=== PATIENT | female | born 1950 | race African-American/Black ===

== ENCOUNTER → 2017-03-07 | Outpatient (CLI) | payer BC ==
--- NOTE | 2017-03-07 15:50 | RAD ---
Indication pain associated with a fall. Axial images through the left knee were obtained. Images were reformatted in the coronal and sagittal planes. No plain film imaging is available. There is mild soft tissue swelling. Review of axial images shows no acute finding. The reformatted images in the coronal and sagittal planes also fail to demonstrate any acute finding. There are degenerative changes. This is manifested primarily as medial joint space compartment narrowing. Some cystic degeneration associated with the lateral tibial plateau is noted. Osteophytes are seen medially off both the femur and proximal tibia. Smaller osteophytes are seen laterally. There is patellofemoral narrowing. There is probable chondrocalcinosis. IMPRESSION: Advanced degenerative changes involving the knee. No acute finding seen PQRS Compliance Statement: One or more of the following individualized dose reduction techniques were utilized for this examination: 1. Automated exposure control 2. Adjustment of the mA and/or kV according to patient size 3. Use of iterative reconstruction technique
--- NOTE | 2017-03-07 16:11 | RAD ---
Indication left leg pain. Grayscale color Doppler and spectral imaging was performed. Examination was targeted to the veins of the left lower extremity. The study is somewhat limited secondary to patient body habitus. The common femoral vein appeared normal. That portion of the femoral vein which was seen appeared unremarkable. The distal portion was not, however, well demonstrated. No thrombus was seen in the popliteal vein. The calf veins were not well visualized but no definite calf DVT was seen. IMPRESSION: Limited study. No definite DVT seen.
== END | disposition home or self-care (01) ==
LOC: US 15:21
PROVIDERS: ATTEND Orthopaedic Surgery Sports Medicine
DX: M17.12 Unilateral primary osteoarthritis, left knee (principal); M79.605 Pain in left leg; M79.89 Other specified soft tissue disorders; Z91.81 History of falling
CPT/HCPCS: 73700; 76376; 93971

== ENCOUNTER 2018-05-26 20:25 | Emergency (ER) | payer BC ==
[~2018-05-26] VITALS: Ht 160 cm; Wt 145.1 kg
[2018-05-26] MEDS ORDERED: SERT100T PO (21:00)
[2018-05-26] MEDS ORDERED: METF10007 PO (21:00)
[2018-05-26] MEDS ORDERED: VALS320T2 PO (21:02)
[2018-05-26] MEDS ORDERED: FURO40TA4 PO (21:02)
[2018-05-26] MEDS ORDERED: ATOR10TA60 PO (21:02)
[2018-05-26] MEDS ORDERED: BUTORPHANOL 2 MG/ML VIAL. IV ONE (21:30)
[2018-05-26] MEDS ORDERED: PROCHLORPERAZINE 10 MG/2 ML VIAL. IV ONE (21:30)
--- NOTE | 2018-05-26 21:36 | PHYS DOC ---
Past Medical History Past Medical History: Diabetes-Type I, High Cholesterol Past Surgical History: Hysterectomy, Lumbar Laminectomy Alcohol Use: Rarely Drug Use: None Adult General Chief Complaint Chief Complaint: HEADACHE HPI HPI Patient is a 68-year-old female who presents with complaint of left-sided frontal headache that started yesterday. Patient indicates the pain is been progressively worsening. She states that she was not able to really sleep last night because of the pain. She states that she finally fell asleep at about 6: 00 this morning. She currently rates her pain to be a 10 out of 10. She does indicate that she has had some nausea as well as vomiting since headache onset. She describes the pain as being like a sharp stabbing and is throbbing in nature. She does have a history of headaches in the past but states that this is different. He denies any chest pain, shortness of breath or abdominal pain. She also denies photophobia or phonophobia. She states that nothing really worsens or improves the headache. Review of Systems Review of Systems Constitutional: Denies fever or chills [] Eyes: Denies change in visual acuity, redness, or eye pain [] HENT: Denies nasal congestion or sore throat [] Respiratory: Denies cough or shortness of breath [] Cardiovascular: Denies chest pain[] GI: Denies abdominal pain. Complains of nausea and vomiting [] Musculoskeletal: Denies back pain or joint pain [] Integument: Denies rash or skin lesions [] Neurologic: Complains of headache[] All other systems were reviewed and found to be within normal limits, except as documented in this note. Current Medications Current Medications Current Medications Medications (Trade) Dose Ordered Sig/Domingo Start Time Stop Time Status Last Admin Dose Admin Acetaminophen (Tylenol) 1,000 mg 1X ONCE 05/26/18 21:45 05/26/18 21:46 DC 05/26/18 22:36 1,000 MG Butorphanol Tartrate (Stadol) 1 mg 1X ONCE 05/26/18 21:30 05/26/18 21:31 DC 05/26/18 22:25 1 MG Ceftriaxone Sodium 50 ml @ 100 mls/hr 1X ONCE 05/27/18 01:00 05/27/18 01:29 05/27/18 01:03 100 MLS/HR Ketorolac Tromethamine (Toradol 15mg Vial) 15 mg 1X ONCE 05/26/18 23:15 05/26/18 23:16 DC 05/26/18 23:41 15 MG Prochlorperazine Edisylate (Compazine) 10 mg 1X ONCE 05/26/18 21:30 05/26/18 21:31 DC 05/26/18 22:24 10 MG Sumatriptan Succinate (Imitrex) 6 mg 1X ONCE 05/26/18 23:15 05/26/18 23:16 DC 05/26/18 23:41 6 MG Allergies Allergies Allergies Coded Allergies Type Severity Reaction Last Updated Verified Sulfa (Sulfonamide Antibiotics) Allergy Intermediate Hives 05/26/18 No Physical Exam Physical Exam Constitutional: Well developed, well nourished, no acute distress, non-toxic appearance. [] HENT: Normocephalic, atraumatic, bilateral external ears normal, oropharynx moist, no oral exudates, nose normal. [] Eyes: PERRLA, EOMI, conjunctiva normal, no discharge. [] Neck: Normal range of motion, no tenderness, supple, no stridor. [] Cardiovascular:Heart rate regular rhythm [] Lungs & Thorax: Bilateral breath sounds clear to auscultation [] Abdomen: Bowel sounds normal, soft, no tenderness. [] Skin: Warm, dry, no erythema, no rash. [] Extremities: No tenderness, no cyanosis, no clubbing, ROM intact, no edema. [] Neurologic: Alert and oriented X 3, normal motor function, normal sensory function, no focal deficits noted. [] Current Patient Data Vital Signs Vital Signs Date Time Temp Pulse Resp B/P (MAP) Pulse Ox O2 Delivery O2 Flow Rate FiO2 05/26/18 23:50 90 16 94 05/26/18 22:25 Room Air 05/26/18 20:34 100.3 144/94 (111) 100.3 Lab Values Laboratory Tests Test 05/26/18 21:30 05/27/18 00:15 White Blood Count 10.0 x10^3/uL (4.0-11.0) Red Blood Count 3.52 x10^6/uL (3.50-5.40) Hemoglobin 10.4 g/dL (12.0-15.5) L Hematocrit 30.6 % (36.0-47.0) L Mean Corpuscular Volume 87 fL (79-100) Mean Corpuscular Hemoglobin 30 pg (25-35) Mean Corpuscular Hemoglobin Concent 34 g/dL (31-37) Red Cell Distribution Width 15.4 % (11.5-14.5) H Platelet Count 155 x10^3/uL (140-400) Neutrophils (%) (Auto) 90 % (31-73) H Lymphocytes (%) (Auto) 4 % (24-48) L Monocytes (%) (Auto) 6 % (0-9) Eosinophils (%) (Auto) 0 % (0-3) Basophils (%) (Auto) 0 % (0-3) Neutrophils # (Auto) 9.0 x10^3uL (1.8-7.7) H Lymphocytes # (Auto) 0.4 x10^3/uL (1.0-4.8) L Monocytes # (Auto) 0.6 x10^3/uL (0.0-1.1) Eosinophils # (Auto) 0.0 x10^3/uL (0.0-0.7) Basophils # (Auto) 0.0 x10^3/uL (0.0-0.2) Segmented Neutrophils % 75 % (35-66) H Band Neutrophils % 14 % (0-9) H Lymphocytes % 4 % (24-48) L Monocytes % 5 % (0-10) Eosinophils % 2 % (0-5) Nucleated Red Blood Cells 1 Platelet Estimate Adequate (ADEQUATE) Sodium Level 137 mmol/L (136-145) Potassium Level 3.8 mmol/L (3.5-5.1) Chloride Level 99 mmol/L (98-107) Carbon Dioxide Level 29 mmol/L (21-32) Anion Gap 9 (6-14) Blood Urea Nitrogen 22 mg/dL (7-20) H Creatinine 1.3 mg/dL (0.6-1.0) H Estimated GFR (Cockcroft-Gault) 49.1 BUN/Creatinine Ratio 17 (6-20) Glucose Level 197 mg/dL (70-99) H Calcium Level 9.3 mg/dL (8.5-10.1) Total Bilirubin 0.7 mg/dL (0.2-1.0) Aspartate Amino Transferase (AST) 18 U/L (15-37) Alanine Aminotransferase (ALT) 16 U/L (14-59) Alkaline Phosphatase 72 U/L (46-116) Total Protein 7.6 g/dL (6.4-8.2) Albumin 3.3 g/dL (3.4-5.0) L Albumin/Globulin Ratio 0.8 (1.0-1.7) L Thyroid Stimulating Hormone (TSH) 0.635 uIU/mL (0.358-3.74) Urine Collection Type Unknown Urine Color Yellow Urine Clarity Cloudy Urine pH 6.0 Urine Specific [place] 1.020 Urine Protein 30 mg/dL (NEG-TRACE) Urine Glucose (UA) Negative mg/dL (NEG) Urine Ketones (Stick) Negative mg/dL (NEG) Urine Blood Large (NEG) Urine Nitrite Positive (NEG) Urine Bilirubin Negative (NEG) Urine Urobilinogen Dipstick 0.2 mg/dL (0.2 mg/dL) Urine Leukocyte Esterase Moderate (NEG) Urine RBC 20-40 /HPF (0-2) Urine WBC 11-20 /HPF (0-4) Urine Squamous Epithelial Cells Mod /LPF Urine Bacteria Many /HPF (0-FEW) Urine Mucus Slight /LPF Laboratory Tests 05/26/18 21:30 Laboratory Tests 05/26/18 21:30 EKG EKG [] Radiology/Procedures Radiology/Procedures [] Impressions: CT of head is negative. Chest x-ray is negative. Course & Med Decision Making Course & Med Decision Making Pertinent Labs and Imaging studies reviewed. (See chart for details) [] Dragon Disclaimer Dragon Disclaimer This electronic medical record was generated, in whole or in part, using a voice recognition dictation system. Departure Departure Impression: Primary Impression: Acute headache Additional Impression: Urinary tract infection Disposition: HOME, SELF-CARE Condition: STABLE Referrals: BANDAR HERZOG MD (PCP) Patient Instructions: Migraine Headache, Urinary Tract Infection Additional Instructions: Take prescribed medication as directed and follow-up with your primary care provider in the next few days. Scripts Nitrofurantoin Monohyd/M-Cryst (MACROBID 100 MG CAPSULE) 100 Mg Capsule 1 CAP PO BID, #14 CAP Prov: FRANK RODRIGUEZ Jr. DO 05/27/18 Problem Qualifiers Primary Impression: Acute headache Headache type: unspecified Intractability: not intractable Qualified Codes : R51 - Headache Additional Impression: Urinary tract infection Urinary tract infection type: site unspecified Hematuria presence: without hematuria Qualified Codes: N39.0 - Urinary tract infection, site not specified FRANK RODRIGUEZ Jr. DO May 26, 2018 21:36
[2018-05-26 21:45] LABS: BASO % 0 % (0-3); EOS % 0 % (0-3); HEMATOCRIT 30.6 % (36.0-47.0); HEMOGLOBIN 10.4 g/dL (12.0-15.5); LYMPH # 0.4 x10^3/uL (1.0-4.8); LYMPH % 4 % (24-48); MEAN CORPUSCULAR HEMOGLOBIN 30 pg (25-35); MEAN CORPUSCULAR HGB CONC 34 g/dL (31-37); MEAN CORPUSCULAR VOLUME 87 fL (79-100); MONO # 0.6 x10^3/uL (0.0-1.1); MONO % 6 % (0-9); NEUT % 90 % (31-73); PLATELET COUNT 155 x10^3/uL (140-400); RED BLOOD COUNT 3.52 x10^6/uL (3.50-5.40); RED CELL DISTRIBUTION WIDTH 15.4 % (11.5-14.5)
[2018-05-26] MEDS ORDERED: ACETAMINOPHEN 500 MG TABLET PO ONE (21:45)
[2018-05-26 21:54] LABS: CALCIUM 9.3 mg/dL (8.5-10.1); CREATININE 1.3 mg/dL (0.6-1.0); GFR 49.1; POTASSIUM 3.8 mmol/L (3.5-5.1)
[2018-05-26 22:00] LABS: ALBUMIN 3.3 g/dL (3.4-5.0); ALBUMIN/GLOBULIN RATIO 0.8 (1.0-1.7); TOTAL BILIRUBIN 0.7 mg/dL (0.2-1.0); TOTAL PROTEIN 7.6 g/dL (6.4-8.2)
[2018-05-26 22:09] LABS: % BANDS 14 % (0-9); % EOS 2 % (0-5); % LYMPHS 4 % (24-48); % MONOS 5 % (0-10); % SEGS 75 % (35-66); NUCLEATED RBC 1; PLT ESTIMATE ADEQUATE (ADEQUATE)
--- NOTE | 2018-05-26 22:32 | RAD ---
EXAM: CT HEAD WITHOUT CONTRAST. HISTORY: Severe headache. TECHNIQUE: Computed tomography of the head was performed without intravenous contrast. COMPARISON: 11/21/2004. FINDINGS: There is no intracranial hemorrhage. Hypoattenuation within the white matter indicates moderate to severe chronic microangiopathic change. Prominence of the lateral ventricles and hemispheric sulci indicates mild atrophy. The visualized paranasal sinuses appear clear. There are changes of bilateral cataract surgery. The temporal bones are unremarkable. The calvarium reveals no suspicious lesions. IMPRESSION: 1. No acute intracranial findings. 2. Mild atrophy and moderate to severe chronic microangiopathic white matter change. *One or more of the following individualized dose reduction techniques were utilized for this examination: 1. Automated exposure control. 2. Adjustment of the mA and/or kV according to patient size. 3. Use of iterative reconstruction technique. Electronically signed by: Burke Huber MD (05/26/2018 10:30 PM) [facility]
[2018-05-26] MEDS ORDERED: SUMAtriptan SUCC 6 MG/0.5 ML VIAL. SQ ONE (23:15)
[2018-05-26] MEDS ORDERED: KETOROLAC 15 MG/ML VIAL. IV ONE (23:15)
--- NOTE | 2018-05-27 00:02 | RAD ---
EXAM: CHEST 2 VIEWS. HISTORY: Nausea, cough, shortness of breath, hypertension. COMPARISON: 01/18/2005. FINDINGS: Frontal and lateral views of the chest are obtained. There are no confluent infiltrates. There is no pneumothorax or pleural effusion. The heart is not enlarged. Calcified mediastinal lymph nodes are likely secondary to old granulomatous disease. There is bulky calcification along a chronic healed fracture of the right proximal clavicle. IMPRESSION: 1. No confluent infiltrates. Electronically signed by: Burke Huber MD (05/26/2018 11:59 PM) [facility]
[2018-05-27 00:24] LABS: BILIRUBIN,URINE NEGATIVE (NEG); CLARITY,URINE CLOUDY; COLOR,URINE YELLOW; NITRITE,URINE POSITIVE (NEG); PROTEIN,URINE 30 mg/dL (NEG-TRACE); UROBILINOGEN,URINE 0.2 mg/dL (0.2 mg/dL)
[2018-05-27 00:35] LABS: BACTERIA,URINE MANY /HPF (0-FEW); RBC,URINE 20-40 /HPF (0-2)
[2018-05-27 00:36] LABS: SQUAMOUS EPITHELIAL CELL,UR MOD /LPF
[2018-05-27] MEDS ORDERED: NITR100C62 PO (01:07)
[2018-05-27 01:36] VITALS: BP 130/74
== END 2018-05-27 01:37 | disposition home or self-care (01) ==
LOC: ER 20:25
DX: R51 Headache (principal); N39.0 Urinary tract infection, site not specified; E10.9 Type 1 diabetes mellitus without complications; E78.00 Pure hypercholesterolemia, unspecified; Z90.710 Acquired absence of both cervix and uterus; Z98.890 Other specified postprocedural states; Z88.2 Allergy status to sulfonamides
CPT/HCPCS: 36415; 70450; 71046; 80053; 81001; 84443; 85007; 85025; 87086; 96365; 96372; 96375; 99285; J0690; J0780; J1885; J3030

== ENCOUNTER 2018-05-27 16:32 | Emergency (ER) | payer BC ==
[~2018-05-27] VITALS: Ht 165.1 cm; Wt 145.1 kg
[~2018-05-27 16:32] MED LIST: ATOR10TA60 PO; FURO40TA4 PO; METF10007 PO; NITR100C62 PO; SERT100T PO; VALS320T2 PO
[2018-05-27] MEDS ORDERED: HYDROcodone/APAP 5/325MG 1 TAB TABLET PO ONE (17:30)
--- NOTE | 2018-05-27 17:32 | PHYS DOC ---
Past Medical History Past Medical History: Diabetes-Type I, High Cholesterol, UTI Past Surgical History: Hysterectomy, Lumbar Laminectomy Alcohol Use: Rarely Drug Use: None Adult General Chief Complaint Chief Complaint: MECHANICAL FALL HPI HPI Patient is a 68 year old female who presents to the emergency department with complaints of left hand and wrist pain after falling today using her walker. Patient states he became very dizzy and lightheaded when she fell pinning herself under her walker. Pt states she laid on the floor from approximately 7: 00 this morning until patient was brought to the emergency room. She reports an unknown duration of LOC. She reports that she was seen here in the ER yesterday for a headache with nausea and vomiting, and was diagnosed with a urinary tract infection. She did not take any of her medications today. Pt denies any chest pain, shortness of breath, abdominal pain, or fever. Review of Systems Review of Systems Constitutional: Denies fever or chills [] Eyes: Denies change in visual acuity, redness, or eye pain [] HENT: Denies nasal congestion or sore throat [] Respiratory: Denies cough or shortness of breath [] Cardiovascular: denies chest pain GI: Denies abdominal pain, nausea, vomiting, bloody stools or diarrhea [] : Denies dysuria or hematuria; reports being diagnosed with a UTI last night[] Musculoskeletal: Denies back pain ; reports left wrist and left hand pain with swelling Integument: Denies rash or skin lesions [] Neurologic: Denies headache, focal weakness or sensory changes, reports dizziness like the room was spinning prior to fall [] All other systems were reviewed and found to be within normal limits, except as documented in this note. Current Medications Current Medications Current Medications Medications (Trade) Dose Ordered Sig/Domingo Start Time Stop Time Status Last Admin Dose Admin Acetaminophen/ Hydrocodone Bitart (Lortab 5/325) 1 tab 1X ONCE 05/27/18 17:30 05/27/18 17:31 DC 05/27/18 17:22 1 TAB Ceftriaxone Sodium 50 ml @ 100 mls/hr 1X ONCE 05/27/18 20:15 05/27/18 20:44 DC 05/27/18 20:30 100 MLS/HR Sodium Chloride 1,000 ml @ 1,000 mls/hr 1X ONCE 05/27/18 20:15 05/27/18 21:14 DC 05/27/18 20:30 1,000 MLS/HR Allergies Allergies Allergies Coded Allergies Type Severity Reaction Last Updated Verified Sulfa (Sulfonamide Antibiotics) Allergy Intermediate Hives 05/26/18 No Physical Exam Physical Exam Constitutional: Well developed, well nourished, no acute distress, non-toxic appearance, obese [] HENT: Normocephalic, atraumatic, bilateral external ears normal, nose normal. [] Eyes: PERRLA, conjunctiva normal, no discharge. [] Neck: Normal range of motion, no tenderness, supple, no stridor. [] Cardiovascular:Heart rate regular rhythm, no murmur [] Lungs & Thorax: Bilateral breath sounds clear to auscultation [] Abdomen: Bowel sounds normal, soft, no tenderness, no masses, no pulsatile masses, bruising noted over RUQ [] Skin: Warm, dry, no erythema, no rash, bruising noted to R clavicle [] Extremities: No cyanosis, no clubbing, limited ROM of Left wrist, 2+ edema to left hand and left wrist with blistering noted to volar aspect of left thumb, pt reports diffuse tenderness with palpation of left hand and wrist, able to wiggle fingers. Neurologic: Alert and oriented X 3, normal motor function, normal sensory function, no focal deficits noted. [] Psychologic: Affect normal, judgement normal, mood normal. [] Current Patient Data Vital Signs Vital Signs Date Time Temp Pulse Resp B/P (MAP) Pulse Ox O2 Delivery O2 Flow Rate FiO2 05/27/18 22:10 98.2 72 20 98 98.2 05/27/18 16:35 185/77 (113) Room Air Lab Values Laboratory Tests Test 05/27/18 17:30 White Blood Count 9.0 x10^3/uL (4.0-11.0) Red Blood Count 3.79 x10^6/uL (3.50-5.40) Hemoglobin 11.2 g/dL (12.0-15.5) L Hematocrit 32.6 % (36.0-47.0) L Mean Corpuscular Volume 86 fL (79-100) Mean Corpuscular Hemoglobin 29 pg (25-35) Mean Corpuscular Hemoglobin Concent 34 g/dL (31-37) Red Cell Distribution Width 15.1 % (11.5-14.5) H Platelet Count 172 x10^3/uL (140-400) Neutrophils (%) (Auto) 85 % (31-73) H Lymphocytes (%) (Auto) 5 % (24-48) L Monocytes (%) (Auto) 9 % (0-9) Eosinophils (%) (Auto) 0 % (0-3) Basophils (%) (Auto) 0 % (0-3) Neutrophils # (Auto) 7.6 x10^3uL (1.8-7.7) Lymphocytes # (Auto) 0.5 x10^3/uL (1.0-4.8) L Monocytes # (Auto) 0.8 x10^3/uL (0.0-1.1) Eosinophils # (Auto) 0.0 x10^3/uL (0.0-0.7) Basophils # (Auto) 0.0 x10^3/uL (0.0-0.2) Segmented Neutrophils % 72 % (35-66) H Band Neutrophils % 10 % (0-9) H Lymphocytes % 5 % (24-48) L Monocytes % 12 % (0-10) H Basophils % 1 % (0-3) Platelet Estimate Adequate (ADEQUATE) Giant Platelets Few Prothrombin Time 13.9 SEC (11.7-14.0) Prothrombin Time INR 1.1 (0.8-1.1) Sodium Level 140 mmol/L (136-145) Potassium Level 3.6 mmol/L (3.5-5.1) Chloride Level 100 mmol/L (98-107) Carbon Dioxide Level 30 mmol/L (21-32) Anion Gap 10 (6-14) Blood Urea Nitrogen 20 mg/dL (7-20) Creatinine 1.2 mg/dL (0.6-1.0) H Estimated GFR (Cockcroft-Gault) 53.9 BUN/Creatinine Ratio 17 (6-20) Glucose Level 170 mg/dL (70-99) H Lactic Acid Level 1.5 mmol/L (0.4-2.0) Calcium Level 9.2 mg/dL (8.5-10.1) Total Bilirubin 0.6 mg/dL (0.2-1.0) Aspartate Amino Transferase (AST) 121 U/L (15-37) H Alanine Aminotransferase (ALT) 36 U/L (14-59) Alkaline Phosphatase 79 U/L (46-116) Creatine Kinase 6105 U/L (26-192) H Creatine Kinase MB (Mass) 81.1 ng/mL (0.0-3.6) H Creatine Kinase MB Relative Index 1.3 % (0-4) Troponin I Quantitative < 0.017 ng/mL (0.000-0.055) Total Protein 7.8 g/dL (6.4-8.2) Albumin 3.2 g/dL (3.4-5.0) L Albumin/Globulin Ratio 0.7 (1.0-1.7) L Laboratory Tests 05/27/18 17:30 Laboratory Tests 05/27/18 17:30 EKG EKG SR prolonged QT, No STEMI read by Dr. Shoemaker[] Radiology/Procedures Radiology/Procedures PROCEDURE: CT HEAD WO CONTRAST EXAM: CT HEAD WITHOUT CONTRAST. HISTORY: Syncope, dizziness, found down. TECHNIQUE: Computed tomography of the head was performed without intravenous contrast. COMPARISON: 05/26/2018. FINDINGS: There are limitations from asymmetric positioning in the scanner. There is no intracranial hemorrhage. Hypoattenuation within the white matter indicates moderate to severe chronic microangiopathic change. Prominence of the lateral ventricles and hemispheric sulci indicates moderate atrophy. The visualized paranasal sinuses appear clear. There are changes of bilateral cataract surgery. The temporal bones are unremarkable. The calvarium reveals no suspicious lesions. IMPRESSION: 1. No acute intracranial findings. MRI is more sensitive if there is persistent concern. 2. Mild to moderate atrophy and moderate to severe chronic microangiopathic white matter change. Left hand x-ray negative as read by Dr. Shoemaker Left wrist x-ray negative as read by Dr. Shoemaker CXR negative as read by Dr. Shoemaker[] Course & Med Decision Making Course & Med Decision Making Pertinent Labs and Imaging studies reviewed. (See chart for details) Dx: rhabdomyolysis, UTI, Fall, L hand swelling, L hand pain CT head negative for acute findings. L hand xray and wrist xray negative for acute fracture, read by Dr. Shoemaker, CXR also negative read by Dr. Shoemaker. Pt was diagnosed with UTI during visit 05/26/18, CK elevated to 6105, CK-MB 81.1, Back Tender Cylinder 1.2, gluc 170, AST 121. 2011-Spoke with Dr. Alberto about admission, will admit patient for UTI, Fall, rhabdomyolysis- advised that 1 gm of Rocephin and 1 L of NS have been ordered in the ER 2019 While informing patient of need for admission it is noted that the swelling in her left hand has increase and the blistering is worsening, pallor noted in distal aspect of second and third digits patient also seen by Dr. Shoemaker. [address] Emanuel Brown and advised of L hand findings, his recommendation is to have patient evaluated by a hand surgeon to rule out compartment syndrome. 2043 Spoke with [place] from the transfer team at [facility] who will discuss with her physicians and notify if transfer is accepted. [address] Forest Trujillo trauma service at , who is accepting physician, will transfer the patient to at this time. [] Dragon Disclaimer Dragon Disclaimer This electronic medical record was generated, in whole or in part, using a voice recognition dictation system. Departure Departure Impression: Primary Impression: Rhabdomyolysis Additional Impressions: Left hand pain Crushing injury of left hand, initial encounter Fall UTI (urinary tract infection) Disposition: 02 TRANSFER [facility] Condition: STABLE Referrals: BANDAR HERZOG MD (PCP) Attending Co-Sign Attending Co-Sign The patient was seen and interviewed as well as examined at the bedside. The chart was reviewed. The case was discussed. Agree with the plan of care. Problem Qualifiers Primary Impression: Rhabdomyolysis Rhabdomyolysis type: traumatic Encounter type: initial encounter Qualified Codes: T79.6XXA - Traumatic ischemia of muscle, initial encounter Additional Impressions: Fall Encounter type: initial encounter Qualified Codes: W19.XXXA - Unspecified fall, initial encounter UTI (urinary tract infection) Urinary tract infection type: site unspecified Hematuria presence: with hematuria Qualified Codes: N39.0 - Urinary tract infection, site not specified ; R31.9 - Hematuria, unspecified GUZMAN SPICER APRN May 27, 2018 17:32 ANA CRISTINA SHOEMAKER MD May 30, 2018 14:22
[2018-05-27 17:46] LABS: BASO % 0 % (0-3); EOS % 0 % (0-3); HEMATOCRIT 32.6 % (36.0-47.0); HEMOGLOBIN 11.2 g/dL (12.0-15.5); LYMPH # 0.5 x10^3/uL (1.0-4.8); LYMPH % 5 % (24-48); MEAN CORPUSCULAR HEMOGLOBIN 29 pg (25-35); MEAN CORPUSCULAR HGB CONC 34 g/dL (31-37); MEAN CORPUSCULAR VOLUME 86 fL (79-100); MONO # 0.8 x10^3/uL (0.0-1.1); MONO % 9 % (0-9); NEUT # 7.6 x10^3uL (1.8-7.7); NEUT % 85 % (31-73); PLATELET COUNT 172 x10^3/uL (140-400); RED BLOOD COUNT 3.79 x10^6/uL (3.50-5.40); RED CELL DISTRIBUTION WIDTH 15.1 % (11.5-14.5)
[2018-05-27 17:57] LABS: PROTHROMBIN TIME PATIENT 13.9 SEC (11.7-14.0)
[2018-05-27 17:59] LABS: CALCIUM 9.2 mg/dL (8.5-10.1); CREATININE 1.2 mg/dL (0.6-1.0); GFR 53.9; POTASSIUM 3.6 mmol/L (3.5-5.1)
[2018-05-27 18:06] LABS: ALBUMIN 3.2 g/dL (3.4-5.0); ALBUMIN/GLOBULIN RATIO 0.7 (1.0-1.7); TOTAL BILIRUBIN 0.6 mg/dL (0.2-1.0); TOTAL PROTEIN 7.8 g/dL (6.4-8.2)
--- NOTE | 2018-05-27 18:09 | RAD ---
EXAM: CT HEAD WITHOUT CONTRAST. HISTORY: Syncope, dizziness, found down. TECHNIQUE: Computed tomography of the head was performed without intravenous contrast. COMPARISON: 05/26/2018. FINDINGS: There are limitations from asymmetric positioning in the scanner. There is no intracranial hemorrhage. Hypoattenuation within the white matter indicates moderate to severe chronic microangiopathic change. Prominence of the lateral ventricles and hemispheric sulci indicates moderate atrophy. The visualized paranasal sinuses appear clear. There are changes of bilateral cataract surgery. The temporal bones are unremarkable. The calvarium reveals no suspicious lesions. IMPRESSION: 1. No acute intracranial findings. MRI is more sensitive if there is persistent concern. 2. Mild to moderate atrophy and moderate to severe chronic microangiopathic white matter change. *One or more of the following individualized dose reduction techniques were utilized for this examination: 1. Automated exposure control. 2. Adjustment of the mA and/or kV according to patient size. 3. Use of iterative reconstruction technique. Electronically signed by: Burke Huber MD (05/27/2018 6:06 PM) [facility]
[2018-05-27 18:28] LABS: % BANDS 10 % (0-9); % BASOS 1 % (0-3); % LYMPHS 5 % (24-48); % MONOS 12 % (0-10); % SEGS 72 % (35-66); PLT ESTIMATE ADEQUATE (ADEQUATE)
[2018-05-27] MEDS ORDERED: IV NORMAL SALINE 1000ML BAG 1,000 ML IV ONE (20:15)
--- NOTE | 2018-05-27 20:49 | EKG ---
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
[2018-05-27 22:10] VITALS: BP 189/79
--- NOTE | 2018-05-28 06:00 | RAD ---
Chest AP portable at 1714: Reason for examination: Mechanical fall with anterior chest wall pain and left hand and wrist injury. The heart size is upper normal. Mediastinum is unremarkable. Lung farrell are clear. No acute bony abnormalities are evident. IMPRESSION: No acute cardiopulmonary disease. Left wrist 3 views: No acute fracture or dislocation is seen. The bone density is normal. Joint spaces are maintained. There does appear to be some soft tissue edema. IMPRESSION: No acute bony abnormality at the left wrist. Soft tissue edema. Left hand 3 views: No acute fracture or dislocation is seen. No abnormal periosteal reaction is seen. Joint spaces are maintained. There appears to be soft tissue edema. IMPRESSION: Soft tissue edema. No acute bony abnormality in the left hand. Electronically signed by: Maura Cheung MD (05/28/2018 5:57 AM) [facility]
== END 2018-05-27 22:15 ==
LOC: ER 16:44
DX: S69.92XA Unspecified injury of left wrist, hand and finger(s), initial encounter (principal); T79.6XXA Traumatic ischemia of muscle, initial encounter; R42 Dizziness and giddiness; N39.0 Urinary tract infection, site not specified; R31.9 Hematuria, unspecified; E10.9 Type 1 diabetes mellitus without complications; E78.00 Pure hypercholesterolemia, unspecified; Z87.440 Personal history of urinary (tract) infections; Z90.710 Acquired absence of both cervix and uterus; Z98.890 Other specified postprocedural states; Z88.2 Allergy status to sulfonamides; W18.30XA Fall on same level, unspecified, initial encounter; Y93.01 Activity, walking, marching and hiking; Y92.89 Other specified places as the place of occurrence of the external cause; Y99.8 Other external cause status
CPT/HCPCS: 36415; 70450; 71045; 73110; 73130; 80053; 82553; 83605; 84484; 85007; 85025; 85610; 93005; 96365; 99285; J0690; J7030